=== PATIENT | female | born 1995 | race Caucasian/White ===

== ENCOUNTER 2020-12-11 20:21 | Emergency (ER) | payer OTHER ==
[2020-12-11] MEDS ORDERED: NORFLEX 100 MG100 MG PO (21:46)
[2020-12-11] MEDS ORDERED: NAPROXEN500 MG PO (21:46)
== END 2020-12-11 21:50 | disposition home or self-care (01) ==
LOC: ER1 20:21
DX: S16.1XXA Strain of muscle, fascia and tendon at neck level, initial encounter (principal); S46.911A Strain of unspecified muscle, fascia and tendon at shoulder and upper arm level, right arm, initial encounter; V49.9XXA Car occupant (driver) (passenger) injured in unspecified traffic accident, initial encounter
CPT/HCPCS: 99283